=== PATIENT | female | born 1960 | race Caucasian/White ===

== ENCOUNTER 2023-09-06 09:15 | Outpatient (AMB) | payer BC, SELFPAY ==
--- NOTE | 2023-09-06 09:30 | MHC.OFFVIS ---
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 Pt states that she has had them most of her life and her mother has them as well. Pt states that the Left LE buldging VV are painful. States she has worn compression stockings. 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 Complaints include pain over varicosities, swelling of lower extremities, cramping, fatigue, and heaviness of the lower extremities. It has been affecting there daily activities including walking. It is noted more so in right leg. Of note she has had visits to prior doctors regarding venous disease in particular Dr. Pickard at [facility] Patient denies any previous venous surgery or injections. Patient denies any history of DVT/ PE. Patient denies any history of phlebitis. Trial of compression includes - prescription compression for several months They now present for vascular evaluation regarding their varicose veins. [facility] Social History (Updated 09/06/23 @ 09:36 by ANIVAL Graham) Patient Tobacco Use Status: Current everyday Tobacco user Cigarette Packs Per Day: 1 Review of Systems Const All systems reviewed & are unremarkable except as noted in HPI and below Reports no additional complaints ENT Reports Normal hearing present Card Denies chest pain, Denies chest pain at rest, Denies chest pain with activity and Denies pedal edema Resp Denies cough GI Denies abdominal pain Musc Denies abnormal gait, Denies muscle cramps and Denies radiating pain into limb Skin/Breast Denies skin ulcer and Denies wounds Neuro Reports Normal hearing present and Denies abnormal gait Psych Reports no additional complaints Physical Exam Const General: cooperative, healthy appearing and comfortable Orientation/consciousness: oriented to person, oriented to place and oriented to time HEENT Head: Yes normal to inspection Neck Neck: Yes normal visual inspection Carotids: no bruits Chest Chest palpation & inspection: normal inspection of the chest Resp Effort & Inspection: normal respiratory effort and able to speak in complete sentences Auscultation: clear to auscultation bilaterally, no crackles, no rales, no rhonchi and no wheezes Cardio Rate: regular rate Rhythm: regular rhythm Heart sounds: S1 normal heart sound present and S2 normal heart sound present Bruits: no carotid bruits Peripheral pulses: Peripheral pulses 2+ throughout GI Inspection: Yes normal to inspection Skin Wounds: no wounds Hair: normal Neuro General: oriented to person, oriented to place and oriented to time Cranial nerves: Yes CN's II-XII intact bilaterally and Yes Normal hearing present Cognition (Neuro): normal cognition Motor exam (neuro): 5/5 motor strength present throughout Extrem Other: venous exam: +1 edema General: No clubbing, No cyanosis and Yes edema Psych Appearance: grossly normal Mental Status: mental status grossly normal Speech and movement: Normal speech and movement present Assessment & Plan Assessment & Plan (1) Varicose veins of right lower extremity with inflammation: Code(s): I83.11 - Varicose veins of right lower extremity with inflammation Category: Medical Plan: In short, the patient has evidence of venous insufficiency. I have discussed the pathophysiology with the patient. In addition I have provided informational material regarding venous disease to the patient. We have discussed conservative measures including compression, elevation, and exercise. I have also provided a handout regarding appropriate use of compression stockings and where to purchase good compression stockings as well. I have taken the liberty of ordering venous insufficiency testing with the patient. They will follow up with me after testing. The patient had an opportunity to ask questions regarding the treatment plan. All questions were answered. Imaging studies, laboratory studies and physical exam results were discussed and reviewed in detail. No major barriers to understanding were identified. The patient expressed understanding and agreement with the above treatment plan. The patient is aware they should contact our office by phone for worsening of the current condition or the appearance of new symptoms. Thank you for allowing me to participate in the vascular care of this patient. If you have any questions or concerns regarding the treatment for the above condition please do not hesitate to contact me. The office telephone contact is [phone]. This note is constructed using voice recognition software. While every effort has been made to ensure accuracy, rough and trueing machine operator errors may have been included. Thank you for allowing me to participate in the care of your patient. Yours sincerely, Jj Pritchard MD, FACS, R.P.V.I. Orders: Orders US venous duplex LE BI 1 Week I83.11 - Varicose veins of right lower extremity with inflammation Coding Level of Care Code New Pt Level 4 (18332) Diagnoses Varicose veins of right lower extremity with inflammation I83.11
== END 2023-09-06 10:16 | disposition home or self-care (01) ==
PROVIDERS: PCP Nurse Practitioner Family; Visit Provider Surgery Vascular Surgery
DX: I83.11 Varicose veins of right lower extremity with inflammation (principal)
CPT/HCPCS: 99203

== ENCOUNTER → 2023-09-06 09:15 | Outpatient (BNVA) | payer BC, SELFPAY | PROVIDERS: PCP Nurse Practitioner Family; Visit Provider Surgery Vascular Surgery ==

== ENCOUNTER 2023-09-22 08:17 | Outpatient (REF) | payer BC, SELFPAY ==
--- NOTE | ~2023-09-22 | US_ITS ---
EXAMINATION: US LOWER EXTREMITY VENOUS (REFLUX EXAM), BILATERAL CLINICAL INDICATION: Varicose veins of right lower extremity COMPARISON: None. TECHNIQUE: Color flow triplex imaging and compression Doppler was performed to evaluate both the deep and the superficial systems bilaterally. To evaluate the superficial system, the examination was performed in the upright position. Color-flow Doppler ultrasound and compression ultrasound were utilized. In addition, maneuvers were utilized to demonstrate reflux. FINDINGS: 1. DEEP VENOUS ULTRASOUND OF THE RIGHT LOWER EXTREMITY: Common Femoral Vein: Compressible, normal respiratory variation and augmented flow. Femoral Vein: Compressible, normal color flow and augmentation. Popliteal Vein: Compressible, normal augmentation. Deep Reflux: There is no evidence of reflux in the deep system in either the common femoral vein, superficial femoral or the popliteal vein. There is no evidence of a Rivas's cyst. 2. SUPERFICIAL ULTRASOUND WITH DOPPLER OF RIGHT LOWER EXTREMITY: GREAT SAPHENOUS VEIN: Saphenofemoral Junction: 0.6 cm; Reflux: 0 ms Proximal Thigh: 0.3 cm; Reflux: 0 ms Mid Thigh: 0.1 cm; Reflux: 0 ms Above Knee: 0.2 cm; Reflux: 0 ms At Knee: 0.2 cm; Reflux: 0 ms Below Knee: 0.2 cm; Reflux: 0 ms Mid Calf: 0.2 cm; Reflux: 0 ms Ankle: 0.1 cm; Reflux: 0 ms SMALL SAPHENOUS VEIN: Saphenopopliteal Junction: 0.2 cm; Reflux: 0 ms Proximal: 0.2 cm; Reflux: 0 ms Distal: 0.1 cm; Reflux: 0 ms PERFORATORS: Location: Mid thigh Size: 0.2; Reflux: 0 ms Location: Proximal calf Size: 0.1; Reflux: 0 ms Location: Distal calf Size: 0.3; Reflux: 0 ms VARICOSITIES: Location: Off the alumni coordinator Size: 0.2; Reflux: 0 ms 3. DEEP VENOUS ULTRASOUND OF THE LEFT LOWER EXTREMITY: Common Femoral Vein: Compressible, normal respiratory variation and augmented flow. Femoral Vein: Compressible, normal color flow and augmentation. Popliteal Vein: Compressible, normal augmentation. Deep Reflux: There is no evidence of reflux in the deep system in either the common femoral vein, superficial femoral or the popliteal vein. There is no evidence of a Rivas's cyst. 4. SUPERFICIAL ULTRASOUND WITH DOPPLER OF LEFT LOWER EXTREMITY: GREAT SAPHENOUS VEIN: Saphenofemoral Junction: 0.7 cm; Reflux: 0 ms Proximal Thigh: 0.2 cm; Reflux: 0 ms Mid Thigh: 0.2 cm; Reflux: 0 ms Above Knee: 0.1 cm; Reflux: 0 ms At Knee: 0.1 cm; Reflux: 560 ms Below Knee: 0.1 cm; Reflux: 2356 ms Mid Calf: 0.2 cm; Reflux: 0 ms Ankle: 0.1 cm; Reflux: 0 ms SMALL SAPHENOUS VEIN: Saphenopopliteal Junction: 0.2 cm; Reflux: 0 ms Proximal: 0.1 cm; Reflux: 0 ms Distal: 0.1 cm; Reflux: 0 ms VEIN OF GIACOMINI: Size: 0.5; Reflux: 588 ms PERFORATORS: Location: Distal thigh Size: 0.3; Reflux: 0 ms Location: Proximal thigh Size: 0.1; Reflux: 0 ms VARICOSITIES: Location: Vein of Giacomini Size: 0.3; Reflux: 0 ms Location: Proximal calf Size: 0.1; Reflux: 2492 ms US/US venous duplex LE BI IMPRESSION: 1. No evidence of deep venous thrombosis or reflux. 2. Segmental incompetence of the left great saphenous vein at the level of the knee and proximal calf with reflux measuring up to 2356 ms. There is no reflux in the proximal segment or at the saphenofemoral junction. 3. The left small saphenous vein continues into a vein of Giacomini. The vein of Giacomini component is incompetent with reflux measuring 588 ms and supplies a varicosity. 4. The right great saphenous vein and right small saphenous vein are competent. 5. Scattered bilateral perforators and varicose veins, one of which demonstrates reflux in the left proximal calf up to 2492 ms and measures 0.1 cm.
== END 2023-09-22 08:18 | disposition home or self-care (01) ==
LOC: HO.US 08:17
PROVIDERS: Visit Provider Surgery Vascular Surgery
DX: I83.11 Varicose veins of right lower extremity with inflammation (principal)
CPT/HCPCS: 93970

== ENCOUNTER 2023-10-04 13:42 | Outpatient (AMB) | payer BC, SELFPAY ==
--- NOTE | 2023-10-04 13:43 | MHC.OFFVIS ---
Vital Signs 10/04/23 13:43 Height 5 ft 4 in Intake Visit Reasons: Follow Up 09/11 US Intake Note: follow up US 09/12/23 for bilateral LE Left LE worse than the Right LE, Has tried compression socks. Pt states she has had VV most of her life and mother did as well. Accompanied by: Self / Same As Patient Allergies acetaminophen [From Tylenol-Codeine #3] Allergy (Mild, Verified 10/04/23 13:47) Unknown codeine [From Tylenol-Codeine #3] Allergy (Mild, Verified 10/04/23 13:47) Unknown HPI HPI Follow Up 09/11 US: Details: Very pleasant 63-year-old female presents for follow-up regarding left lower extremity varicose veins. She has a cluster varicosities in the left lower extremity which had been a source of issues. There had been pain and discomfort. She had significant swelling on that leg as well. She now presents for follow-up. Of note she has used compression with minimal relief. [facility] Social History Patient Tobacco Use Status: Current everyday Tobacco user Cigarette Packs Per Day: 1 Review of Systems Const Reports as per HPI ENT Reports no additional complaints Card Denies chest pain, Denies chest pain at rest and Denies chest pain with activity Resp Denies chest congestion and Denies cough GI Reports no additional complaints Musc Details: pain over varicosities, aching of lower extremities, swelling, cramping, heaviness and tiredness, itching Denies abnormal gait Skin/Breast Reports pruritus and Denies wounds Neuro Reports no additional complaints and Denies abnormal gait Psych Denies no additional complaints Physical Exam Const General: cooperative, healthy appearing and comfortable Orientation/consciousness: oriented to person, oriented to place and oriented to time Neck Carotids: no bruits Chest Chest palpation & inspection: normal inspection of the chest and normal palpation of entire chest wall Resp Effort & Inspection: normal respiratory effort and able to speak in complete sentences Cardio Rate: regular rate Heart sounds: S1 normal heart sound present and S2 normal heart sound present Peripheral pulses: Peripheral pulses 2+ throughout GI Inspection: Yes normal to inspection Skin Other: +2 edema, large rope-like varicosities greater than 4 mm left calf and thigh CEAP Classification C4 - skin color changes Ep - Etiology Primary As - superficial veins P - reflux General skin exam: dry skin Neuro General: oriented to person, oriented to place and oriented to time Extrem Right lower extremity: full ROM, normal capillary refill and edema Left lower extremity: full ROM, normal capillary refill and edema Psych Mental Status: mental status grossly normal Assessment & Plan Assessment & Plan (1) Varicose veins of left lower extremity with inflammation: Code(s): I83.12 - Varicose veins of left lower extremity with inflammation Category: Medical Plan: This patient has varicose veins with inflammation. They continue to be a source of discomfort for the patient. The patient has tried conservative treatment with compression, leg elevation and exercise program for over 3 months time. They have been compliant with all treatment. This has provided minimal relief for the patient. I do not anticipate this course of treatment will alter the underlying etiology. The patient has been scheduled for lower extremity venous treatment inclusive of --- left leg microphlebectomy. Risks, benefits, and complications of this procedure has been discussed in detail with the patient including but not limited to bleeding, infection, and the development of a DVT. The patient has demonstrated a clear understanding and has consented. We will schedule the patient as soon as possible. Thank you for allowing us to participate in this patient's care. If there are any questions or concerns please do not hesitate to contact us. Coding Level of Care Code Est Pt Level 4 (73303) Diagnoses Varicose veins of left lower extremity with inflammation I83.12
== END 2023-10-04 14:34 | disposition home or self-care (01) ==
PROVIDERS: PCP Nurse Practitioner Family; Visit Provider Surgery Vascular Surgery
DX: I83.12 Varicose veins of left lower extremity with inflammation (principal)
CPT/HCPCS: 99214

== ENCOUNTER → 2023-10-04 13:42 | Outpatient (BNVA) | payer BC, SELFPAY | PROVIDERS: PCP Nurse Practitioner Family; Visit Provider Surgery Vascular Surgery ==

== ENCOUNTER 2023-12-30 07:16 | Outpatient (AMB) | payer BC, SELFPAY ==
--- NOTE | 2023-12-30 07:32 | MHC.OFFVIS ---
Intake Visit Reasons: Left microphlebectomy Allergies acetaminophen [From Tylenol-Codeine #3] Allergy (Mild, Verified 12/30/23 07:32) Unknown codeine [From Tylenol-Codeine #3] Allergy (Mild, Verified 12/30/23 07:32) Unknown [facility] Social History Patient Tobacco Use Status: Current everyday Tobacco user Cigarette Packs Per Day: 1 Office Procedures Vascular Office Procedure Details Details: Diagnosis: Left Leg varicose veins with inflammation Procedure: Left leg Microphlebectomy Anesthesia: Local Infiltration 10 cc, Tumescent: 0 cc. Varicose veins were marked in the standing position on the left leg and the patient was then placed in the supine position. The left lower extremity was prepared and draped to allow knee flexion in the sterile field. The patient had large superficial varicose veins with significant symptoms of pain. It was therefore determined to perform microphlebectomies of the clusters of varicose veins. The patient had bulging varicose veins which were previously marked in the standing position. A small stab incision was made longitudinally directly overlying the varicose vein in the calf and the varicose vein was grasped with a hemostat aided by a vein hook. It was then dissected as far proximally and distally as possible and avulsed. A total of 13 stab incisions were made and the procedure of stab phlebectomies was repeated 13 times. Hemostasis was checked and stab incision sites were closed with steri-strips and sterile dressing was given with gauze and krilex wrap followed by an emma bandage. There were no complications and blood loss was minimal. Post-Op instructions were given and a follow-up appointment was recommended. [id number] - Phleb Veins, Extrem - up to 20 All charges added?: Procedure code (CPT) selection complete Assessment & Plan Assessment & Plan (1) Varicose veins of left lower extremity with inflammation: Comment: 12/30/2023 - left leg microphlebectomy Code(s): I83.12 - Varicose veins of left lower extremity with inflammation Category: Medical Plan: See op note Coding Level of Care Code Procedure Only Diagnoses Varicose veins of left lower extremity with inflammation I83.12 CPT Codes Details - Vascular 5: [id number] - Phleb Veins, Extrem - up to 20 ([id number])
== END 2023-12-30 08:40 | disposition home or self-care (01) ==
PROVIDERS: PCP Nurse Practitioner Family; Visit Provider Surgery Vascular Surgery
DX: I83.12 Varicose veins of left lower extremity with inflammation (principal)
CPT/HCPCS: 37765

== ENCOUNTER → 2023-12-30 07:16 | Outpatient (BNVA) | payer BC, SELFPAY | PROVIDERS: PCP Nurse Practitioner Family; Visit Provider Surgery Vascular Surgery | DX: I83.12 Varicose veins of left lower extremity with inflammation (principal) | CPT/HCPCS: 37765 ==

== ENCOUNTER 2024-01-10 10:43 | Outpatient (AMB) | payer BC, SELFPAY ==
--- NOTE | 2024-01-10 10:45 | MHC.OFFVIS ---
Vital Signs 01/10/24 10:45 Height 5 ft 4 in Intake Visit Reasons: 2 week follow up Left micro 12/30/23 Intake Note: 2 week follow up Left LE Micro 12/30/23, Pt states her left LE is swelling since procedure and has a sore spot on the back of her knee where there is an incision and also gets calf cramping. Accompanied by: Self / Same As Patient Allergies acetaminophen [From Tylenol-Codeine #3] Allergy (Mild, Verified 01/10/24 10:51) Unknown codeine [From Tylenol-Codeine #3] Allergy (Mild, Verified 01/10/24 10:51) Unknown HPI HPI 2 week follow up Left micro 12/30/23: Details: Very pleasant 63-year-old female presents for follow-up regarding venous disease. She had most recently undergone left lower extremity microphlebectomy. She reports some swelling in addition to pain in the posterior part of the left popliteal fossa. She has had some mild discomfort in that region. In addition she notes some mild swelling. Overall has done well from the procedure. Now presents for routine postprocedure follow-up. [facility] Social History Patient Tobacco Use Status: Current everyday Tobacco user Cigarette Packs Per Day: 1 Review of Systems Const All systems reviewed & are unremarkable except as noted in HPI and below Reports no additional complaints ENT Reports Normal hearing present Card Denies chest pain, Denies chest pain at rest, Denies chest pain with activity and Denies pedal edema Resp Denies cough GI Denies abdominal pain Musc Denies abnormal gait, Denies muscle cramps and Denies radiating pain into limb Skin/Breast Denies skin ulcer and Denies wounds Neuro Reports Normal hearing present and Denies abnormal gait Psych Reports no additional complaints Physical Exam Const General: cooperative, healthy appearing and comfortable Orientation/consciousness: oriented to person, oriented to place and oriented to time HEENT Head: Yes normal to inspection Neck Neck: Yes normal visual inspection Carotids: no bruits Chest Chest palpation & inspection: normal inspection of the chest Resp Effort & Inspection: normal respiratory effort and able to speak in complete sentences Auscultation: clear to auscultation bilaterally, no crackles, no rales, no rhonchi and no wheezes Cardio Rate: regular rate Rhythm: regular rhythm Heart sounds: S1 normal heart sound present and S2 normal heart sound present Bruits: no carotid bruits Peripheral pulses: Peripheral pulses 2+ throughout GI Inspection: Yes normal to inspection Skin Other: Incisions healing well Wounds: no wounds Hair: normal Neuro General: oriented to person, oriented to place and oriented to time Cranial nerves: Yes CN's II-XII intact bilaterally and Yes Normal hearing present Cognition (Neuro): normal cognition Motor exam (neuro): 5/5 motor strength present throughout Extrem Other: venous exam: No significant superficial varicosities or spider telangiectasias, minimal edema General: No clubbing, No cyanosis and No edema Psych Appearance: grossly normal Mental Status: mental status grossly normal Speech and movement: Normal speech and movement present Assessment & Plan Assessment & Plan (1) Varicose veins of left lower extremity with inflammation: Comment: 12/30/2023 - left leg microphlebectomy Code(s): I83.12 - Varicose veins of left lower extremity with inflammation Category: Medical Plan: In short patient has done well from her left leg microphlebectomy. I do believe she is experiencing some mild post phlebitic symptoms which are very common after these procedures. In addition she does have some musculoskeletal pain in the popliteal fossa. I did relay this information to the patient. She demonstrated an understanding. At the current time I would recommend warm compresses and use of nonsteroidal anti-inflammatories. She will follow up with us on an as-needed basis. Should the symptoms and the problem become more severe happy to see her back. Thank you for allowing us to assist in her care. If there are any questions or concerns please do not hesitate to contact us. Coding Level of Care Code Est Pt Level 3 (17676) Diagnoses Varicose veins of left lower extremity with inflammation I83.12
== END 2024-01-10 11:24 | disposition home or self-care (01) ==
PROVIDERS: PCP Nurse Practitioner Family; Visit Provider Surgery Vascular Surgery
DX: I83.12 Varicose veins of left lower extremity with inflammation (principal)
CPT/HCPCS: 99213

== ENCOUNTER → 2024-01-10 10:43 | Outpatient (BNVA) | payer BC, SELFPAY | PROVIDERS: PCP Nurse Practitioner Family; Visit Provider Surgery Vascular Surgery ==

== ENCOUNTER 2024-02-07 12:47 | Outpatient (AMB) | payer BC, SELFPAY ==
--- NOTE | 2024-02-07 13:03 | MHC.OFFVIS ---
Vital Signs 02/07/24 13:03 Height 5 ft 4 in Intake Visit Reasons: PRN s/p Micro for pain & swelling Intake Note: follow up Left LE micro 12/30/23 w/ some pain and swelling after procedure. STates that the pain behind the knee has somewhat reduced and the swelling is still there. Accompanied by: Self / Same As Patient Allergies acetaminophen [From Tylenol-Codeine #3] Allergy (Mild, Verified 02/07/24 13:07) Unknown codeine [From Tylenol-Codeine #3] Allergy (Mild, Verified 02/07/24 13:07) Unknown HPI HPI PRN s/p Micro for pain & swelling: Details: Very pleasant 63-year-old female presents for follow-up status post left leg microphlebectomy. It was originally done on December 29 but she does feel this cord like sensation behind the back of her knee lower aspect of her thigh. It has been causing her some discomfort. She was concerned about it and now presents for follow-up evaluation [facility] Social History Patient Tobacco Use Status: Current everyday Tobacco user Cigarette Packs Per Day: 1 Review of Systems Const Reports as per HPI ENT Reports no additional complaints Card Denies chest pain, Denies chest pain at rest and Denies chest pain with activity Resp Denies chest congestion and Denies cough GI Reports no additional complaints Musc Details: pain over varicosities, aching of lower extremities, swelling, cramping, heaviness and tiredness, itching Denies abnormal gait Skin/Breast Reports pruritus and Denies wounds Neuro Reports no additional complaints and Denies abnormal gait Psych Denies no additional complaints Physical Exam Const General: cooperative, healthy appearing and comfortable Orientation/consciousness: oriented to person, oriented to place and oriented to time Neck Carotids: no bruits Chest Chest palpation & inspection: normal inspection of the chest and normal palpation of entire chest wall Resp Effort & Inspection: normal respiratory effort and able to speak in complete sentences Cardio Rate: regular rate Heart sounds: S1 normal heart sound present and S2 normal heart sound present Peripheral pulses: Peripheral pulses 2+ throughout GI Inspection: Yes normal to inspection Skin Other: +1 edema, posterior thigh phlebitic vein General skin exam: dry skin Neuro General: oriented to person, oriented to place and oriented to time Extrem Right lower extremity: full ROM, normal capillary refill and edema Left lower extremity: full ROM, normal capillary refill and edema Psych Mental Status: mental status grossly normal Assessment & Plan Assessment & Plan (1) Varicose veins of left lower extremity with inflammation: Comment: 12/30/2023 - left leg microphlebectomy Code(s): I83.12 - Varicose veins of left lower extremity with inflammation Category: Medical Plan: In short patient is doing well status post left leg microphlebectomy. I do believe she has persistent post phlebitic symptoms. We did discuss conservative measures including warm compresses and use of nonsteroidal anti-inflammatories. I do suspect within the next few weeks this should subside. Should it be a persistent problem happy to see her back. Thank you for allowing us to assist in her care. If there are any questions or concerns please do not hesitate to contact us Coding Level of Care Code Est Pt Level 3 (49208) Diagnoses Varicose veins of left lower extremity with inflammation I83.12
== END 2024-02-07 13:44 | disposition home or self-care (01) ==
PROVIDERS: PCP Nurse Practitioner Family; Visit Provider Surgery Vascular Surgery
DX: I83.12 Varicose veins of left lower extremity with inflammation (principal)
CPT/HCPCS: 99213

== ENCOUNTER → 2024-02-07 12:47 | Outpatient (BNVA) | payer BC, SELFPAY | PROVIDERS: PCP Nurse Practitioner Family; Visit Provider Surgery Vascular Surgery ==